=== PATIENT | female | born 1970 | race Caucasian/White ===

== ENCOUNTER 2017-11-04 22:49 | Emergency (ER) | payer OTHER ==
[~2017-11-04] VITALS: Ht 149.9 cm; Wt 77.3 kg
[2017-11-04 23:00] VITALS: BP_SYST 116; BP_SYST 123; BP_DIAS 63; BP_DIAS 74; PULSE 78; RESP 16; TEMP 98.6; O2SAT 97
[2017-11-04 23:01] VITALS: BP 123/63; PULSE 71; RESP 18; TEMP 98.1; O2SAT 96
[2017-11-04] MEDS ORDERED: BIRTH CONTROL PO (23:07)
[2017-11-04 23:11] VITALS: BP_SYST 116; BP_SYST 121; BP_DIAS 67; BP_DIAS 68; BP_DIAS 74; RESP 18
[2017-11-04] MEDS ORDERED: SODIUM CHLOR 0.9% 1000 ML INJ 1,000 ML IV ONE (23:15)
--- NOTE | 2017-11-04 23:37 | PD ---
HPI Chief Complaint: Syncope/Near-Syncope Time Seen by Provider: 23:07 Travel History International Travel<30 days: No Contact w/Intl Traveler<30days: No Traveled to known affect area: No History of Present Illness HPI 47-year-old otherwise healthy female presented the ER for evaluation for near- syncope, patient states that she has been in the sun all day today and went to have dinner and an outside restaurant and had "couple drinks" and she was feeling "little dizzy". She got up from the chair and was on her way to the bathroom at the restaurant and then she felt dizzy and lightheaded and then she felt that she was about to fall and then she held into a pole and sat on the floor. Patient never had these symptoms in the past, denies any stress, she has no palpitations or chest pain nor shortness of breath or sweating. Patient has no weakness or sensory loss or slurred speech. PFSH Past Medical History Medical History: Denies Significant Hx Diminished Hearing: No Immunizations Current: Yes Tetanus Vaccination: > 5 Years Influenza Vaccination: No ?: Not : 2 Para: 3 Past Surgical History Section: Yes (X2) Genitourinary Surgery: Yes (BLADDER SURG AT AGE 5) Social History Alcohol Use: Yes (OCC) Tobacco Use: No Substance Use: No Allergies-Medications (Allergen,Severity, Reaction): Coded Allergies: No Known Allergies (Unverified , 11/04/17) Reported Meds & Prescriptions Reported Meds & Active Scripts Active Reported [ Control] 1 Tab PO DAILY Review of Systems Except as stated in HPI: all other systems reviewed are Neg Physical Exam Narrative GENERAL: Alert oriented 3 no acute distress. SKIN: Focused skin assessment warm/dry. HEAD: Atraumatic. Normocephalic. EYES: Pupils equal and round. No scleral icterus. No injection or drainage. ENT: No nasal bleeding or discharge. Mucous membranes pink and moist. NECK: Trachea midline. No JVD. CARDIOVASCULAR: Regular rate and rhythm. No murmur appreciated. RESPIRATORY: No accessory muscle use. Clear to auscultation. Breath sounds equal bilaterally. GASTROINTESTINAL: Abdomen soft, non-tender, nondistended. Hepatic and splenic margins not palpable. MUSCULOSKELETAL: No obvious deformities. No clubbing. No cyanosis. No edema. NEUROLOGICAL: Awake and alert. No obvious cranial nerve deficits. Motor grossly within normal limits. Normal speech. PSYCHIATRIC: Appropriate mood and affect; insight and judgment normal. Data Data Last Documented VS Vital Signs Date Time Temp Pulse Resp B/P (MAP) Pulse Ox O2 Delivery O2 Flow Rate FiO2 11/04/17 23:11 71 18 116/67 (83) 79 18 121/68 (85) 89 116/74 (88) 11/04/17 23:08 96 Room Air 11/04/17 23:01 98.1 Orders Orders Sodium Chlor 0.9% 1000 Ml Inj (Ns 1000 M (11/04/17 23:15) Complete Blood Count With Diff (11/04/17 23:07) Comprehensive Metabolic Panel (11/04/17 23:07) Troponin I (11/04/17 23:07) Alcohol (Ethanol) (11/04/17 23:07) Ed Discharge Order (11/05/17 00:06) Labs Laboratory Tests Test 11/04/17 23:20 White Blood Count 5.8 TH/MM3 Red Blood Count 4.60 MIL/MM3 Hemoglobin 13.2 GM/DL Hematocrit 39.3 % Mean Corpuscular Volume 85.4 FL Mean Corpuscular Hemoglobin 28.6 PG Mean Corpuscular Hemoglobin Concent 33.5 % Red Cell Distribution Width 11.9 % Platelet Count 198 TH/MM3 Mean Platelet Volume 9.6 FL Neutrophils (%) (Auto) 52.9 % Lymphocytes (%) (Auto) 36.4 % Monocytes (%) (Auto) 9.1 % Eosinophils (%) (Auto) 0.9 % Basophils (%) (Auto) 0.7 % Neutrophils # (Auto) 3.1 TH/MM3 Lymphocytes # (Auto) 2.1 TH/MM3 Monocytes # (Auto) 0.5 TH/MM3 Eosinophils # (Auto) 0.1 TH/MM3 Basophils # (Auto) 0.0 TH/MM3 CBC Comment DIFF FINAL Differential Comment Blood Urea Nitrogen 9 MG/DL Creatinine 0.68 MG/DL Random Glucose 110 MG/DL Total Protein 7.3 GM/DL Albumin 3.6 GM/DL Calcium Level 8.8 MG/DL Alkaline Phosphatase 61 U/L Aspartate Amino Transf (AST/SGOT) 12 U/L Alanine Aminotransferase (ALT/SGPT) 22 U/L Total Bilirubin 0.2 MG/DL Sodium Level 141 MEQ/L Potassium Level 4.0 MEQ/L Chloride Level 106 MEQ/L Carbon Dioxide Level 28.9 MEQ/L Anion Gap 6 MEQ/L Estimat Glomerular Filtration Rate 93 ML/MIN Troponin I LESS THAN 0.02 NG/ML Ethyl Alcohol Level 3 MG/DL MDM Medical Decision Making Medical Screen Exam Complete: Yes Emergency Medical Condition: Yes Differential Diagnosis Dehydration, orthostatic hypotension. Narrative Course 47-year-old female presented the ER for evaluation of near syncope episode. Physical examination unremarkable complete neurological examination is unremarkable, vitals are stable, her labs are within normal limits. Patient does not have any signs or symptoms that warrant for head CT she did not have any loss of consciousness or vomiting she did not have any head trauma. The patient feels better after IV fluids here and is ready to be discharged. Orthostatic blood pressure done by the paramedics was positive for orthostatic hypotension although her orthostatics here are normal. I will discharge the patient follow-up with her primary care physician and if anything change she will have to come back for further evaluation. Patient understands and agrees to plan of care. Laboratory Tests Test 11/04/17 23:20 White Blood Count 5.8 TH/MM3 Red Blood Count 4.60 MIL/MM3 Hemoglobin 13.2 GM/DL Hematocrit 39.3 % Mean Corpuscular Volume 85.4 FL Mean Corpuscular Hemoglobin 28.6 PG Mean Corpuscular Hemoglobin Concent 33.5 % Red Cell Distribution Width 11.9 % Platelet Count 198 TH/MM3 Mean Platelet Volume 9.6 FL Neutrophils (%) (Auto) 52.9 % Lymphocytes (%) (Auto) 36.4 % Monocytes (%) (Auto) 9.1 % Eosinophils (%) (Auto) 0.9 % Basophils (%) (Auto) 0.7 % Neutrophils # (Auto) 3.1 TH/MM3 Lymphocytes # (Auto) 2.1 TH/MM3 Monocytes # (Auto) 0.5 TH/MM3 Eosinophils # (Auto) 0.1 TH/MM3 Basophils # (Auto) 0.0 TH/MM3 CBC Comment DIFF FINAL Differential Comment Blood Urea Nitrogen 9 MG/DL Creatinine 0.68 MG/DL Random Glucose 110 MG/DL Total Protein 7.3 GM/DL Albumin 3.6 GM/DL Calcium Level 8.8 MG/DL Alkaline Phosphatase 61 U/L Aspartate Amino Transf (AST/SGOT) 12 U/L Alanine Aminotransferase (ALT/SGPT) 22 U/L Total Bilirubin 0.2 MG/DL Sodium Level 141 MEQ/L Potassium Level 4.0 MEQ/L Chloride Level 106 MEQ/L Carbon Dioxide Level 28.9 MEQ/L Anion Gap 6 MEQ/L Estimat Glomerular Filtration Rate 93 ML/MIN Troponin I LESS THAN 0.02 NG/ML Ethyl Alcohol Level 3 MG/DL Diagnosis Primary Impression: Orthostatic hypotension Additional Instructions: Follow-up with primary care physician and return here if symptoms change or do not improve. Disposition: 01 DISCHARGE HOME Condition: Stable Antonio Thompson MD Nov 04, 2017 23:37
[2017-11-04 23:41] LABS: AUTOMATED NEUTROPHIL # 3.1 TH/MM3 (1.8-7.7); BASOPHIL % 0.7 % (0.0-2.0); EOSINOPHIL # 0.1 TH/MM3 (0-0.4); EOSINOPHIL % 0.9 % (0.0-4.0); HEMATOCRIT 39.3 % (35.0-46.0); HEMOGLOBIN 13.2 GM/DL (11.6-15.3); LYMPH % 36.4 % (9.0-44.0); LYMPHOCYTE # 2.1 TH/MM3 (1.0-4.8); MEAN CELL VOLUME 85.4 FL (80.0-100.0); MEAN CORPUSCULAR HEMOGLOBIN 28.6 PG (27.0-34.0); MEAN CORPUSCULAR HGB CONC 33.5 % (32.0-36.0); MEAN PLATELET VOLUME 9.6 FL (7.0-11.0); MONO % 9.1 % (0.0-8.0); MONOCYTE # 0.5 TH/MM3 (0-0.9); NEUT % 52.9 % (16.0-70.0); PLATELET COUNT 198 TH/MM3 (150-450); RED CELL DISTRIBUTION WIDTH 11.9 % (11.6-17.2); WHITE BLOOD COUNT 5.8 TH/MM3 (4.0-11.0)
[2017-11-04 23:47] LABS: CHLORIDE 106 MEQ/L (98-107); SODIUM (NA) 141 MEQ/L (136-145)
[2017-11-04 23:51] LABS: ALBUMIN 3.6 GM/DL (3.4-5.0); BICARBONATE 28.9 MEQ/L (21.0-32.0); BLOOD UREA NITROGEN 9 MG/DL (7-18); CALCIUM 8.8 MG/DL (8.5-10.1); GLUCOSE,RANDOM 110 MG/DL (74-106)
[2017-11-04 23:54] LABS: ALT (GPT) 22 U/L (10-53); AST (GOT) 12 U/L (15-37); CREATININE 0.68 MG/DL (0.50-1.00); GLOMERULAR FILTRATION RATE 93 ML/MIN (>89)
[2017-11-04 23:56] LABS: TOTAL BILIRUBIN ADULT 0.2 MG/DL (0.2-1.0); TOTAL PROTEIN 7.3 GM/DL (6.4-8.2)
[2017-11-04 23:57] LABS: ALKALINE PHOSPHATASE 61 U/L (45-117)
[2017-11-04 23:59] LABS: TROPONIN I LESS THAN 0.02 NG/ML (0.02-0.05)
[2017-11-05 00:25] VITALS: BP 119/65; PULSE 80; RESP 16; O2SAT 98
== END 2017-11-05 00:37 | disposition home or self-care (01) ==
LOC: PHED 22:49
DX: I95.1 Orthostatic hypotension (principal)
CPT/HCPCS: 80053; 80307; 84484; 85025; 96360; 99284; J7030